=== PATIENT | male | born 2000 | race Hispanic/Latino ===

== ENCOUNTER 2018-06-27 00:32 | Emergency (ER) | payer MEDICAID, OTHER | END 2018-06-27 02:07 | disposition home or self-care (01) | LOC: EDH 00:32 | DX: J06.9 Acute upper respiratory infection, unspecified (principal); B97.89 Other viral agents as the cause of diseases classified elsewhere; Z91.040 Latex allergy status | CPT/HCPCS: 71046; 87804 ==